=== PATIENT | male | born 2005 | race Caucasian/White ===

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

== ENCOUNTER 2025-02-13 15:18 | Emergency (ER) | payer SELFPAY ==
[~2025-02-13] VITALS: Ht 188 cm; Wt 95.0 kg
[2025-02-13 15:25] VITALS: TEMP 36.4; O2SAT 100
[2025-02-13 16:34] LABS: BASOPHILS % 0.3 % (0.0-2.0); CHLORIDE 106 mEq/L (98-107); EOSINOPHILS % 2.6 % (0.0-5.0); HEMATOCRIT. 42.6 % (42.0-52.0); HEMOGLOBIN. 14.9 g/dL (14.0-18.0); LYMPHOCYTES % 9.2 % (20.0-50.0); MEAN CORPUSCULAR HEMOGLOBIN 29.3 pg (28.0-32.0); MEAN CORPUSCULAR HGB CONC 34.9 g/dL (31.0-37.0); MEAN CORPUSCULAR VOLUME 83.8 fL (80.0-94.0); MEAN PLATELET VOLUME 8.1 fl (7.4-10.4); MONOCYTES % 3.4 % (2.0-8.0); NEUTROPHILS % 84.5 % (40.0-76.0); PLATELET 239 x1000/uL (130-400); POTASSIUM 3.8 mEq/L (3.5-5.1); RED BLOOD CELL COUNT 5.09 mill/uL (4.7-6.1); RED CELL DISTRIBUTION WIDTH 13.1 % (11.6-14.6); SODIUM 138 mEq/L (136-145); WHITE BLOOD COUNT 12.7 x1000/uL (4.5-11.0)
[2025-02-13 16:35] LABS: CARBON DIOXIDE 27 mEq/L (21-32)
[2025-02-13 16:36] LABS: CALCIUM 9.3 mg/dL (8.7-10.4)
[2025-02-13 16:41] LABS: CREATININE 1.4 mg/dL (0.6-1.3); GLUCOSE 123 mg/dL (70-105); UREA NITROGEN BLOOD 18 mg/dL (9-23)
[2025-02-13 16:43] LABS: TROPONIN I HIGH SENSITIVITY < 4 ng/L (3.0-53)
[2025-02-13 17:06] VITALS: BP 124/77; PULSE 89; RESP 18; O2SAT 97
== END 2025-02-13 17:07 | disposition home or self-care (01) ==
LOC: ER 15:18
DX: R07.89 Other chest pain (principal); F17.200 Nicotine dependence, unspecified, uncomplicated; R79.89 Other specified abnormal findings of blood chemistry
CPT/HCPCS: 36415; 71045; 80048; 84484; 85025; 93005; 99285